=== PATIENT | female | born 1950 | race Caucasian/White ===

== ENCOUNTER 2017-01-29 20:08 | Emergency (ER) | payer MEDICARE, BC ==
[2017-01-29 20:34] VITALS: BP 138/62
[2017-01-29] MEDS ORDERED: DOXYcycline CAP(*) 100 MG PO ONE (20:43)
--- NOTE | 2017-01-29 20:51 | UC ---
General HPI - HPI Summary HPI Summary: WAS GARDENING TWO DAYS AGO; TODAY FOUND TICK ATTACHED TO RIGHT GROIN. TICK STILL PRESENT. NO FEVER. NO DISCHARGE. NO RASH. NO JOINT PAIN. - History of Current Complaint Chief Complaint: Pamela Stated Complaint: TICK RIGHT LEG Time Seen by Provider: 01/29/17 20:14 Hx Obtained From: Patient Onset/Duration: Sudden Onset, Lasting Days, Still Present Timing: Constant Onset Severity: Mild Current Severity: None Associated Signs & Symptoms: Negative: Chest Pain, Dizziness, Fever, Headache - Allergy/Home Medications Allergies/Adverse Reactions: Allergies Allergy/AdvReac Type Severity Reaction Status Date / Time Penicillins Allergy Intermediate rash, Verified 01/29/17 20:15 weakness PMH/Surg Hx/FS Hx/Imm Hx Previously Healthy: Yes - Surgical History Surgical History: Yes Surgery Procedure, Year, and Place: OVARIAN CYST IN THE 70S - Family History Known Family History: Negative: Blood Disorder - Social History Occupation: Employed Full-time Lives: With Family Alcohol Use: Rare Substance Use Type: None Smoking Status (MU): Never Smoked Tobacco - Immunization History Most Recent Influenza Vaccination: NONE Most Recent Tetanus Shot: UNKNOWN Most Recent Pneumonia Vaccination: NONE Review of Systems Constitutional: Negative Skin: Other - TICK EMBEDDED INRIGHT FEMORAL CREASE OF GROIN Eyes: Negative ENT: Negative Respiratory: Negative Cardiovascular: Negative Gastrointestinal: Negative Genitourinary: Negative Motor: Negative Neurovascular: Negative Musculoskeletal: Negative Neurological: Negative Psychological: Negative All Other Systems Reviewed And Are Negative: Yes Physical Exam Triage Information Reviewed: Yes Appearance: Well-Appearing, No Pain Distress, Well-Nourished Vital Signs: Initial Vital Signs Temp 98.1 F 01/29/17 20:16 Pulse 73 01/29/17 20:16 Resp 18 01/29/17 20:16 BP 138/62 01/29/17 20:16 Pulse Ox 96 01/29/17 20:16 Vital Signs Reviewed: Yes Eye Exam: Normal ENT Exam: Normal ENT: Positive: Normal ENT inspection Dental Exam: Normal Neck exam: Normal Neck: Positive: Supple, Nontender, No Lymphadenopathy Respiratory Exam: Normal Respiratory: Positive: Chest non-tender, Lungs clear, Normal breath sounds, No respiratory distress, No accessory muscle use Cardiovascular Exam: Normal Cardiovascular: Positive: RRR, No Murmur, Pulses Normal Abdominal Exam: Normal Abdomen Description: Positive: Nontender, No Organomegaly Musculoskeletal Exam: Normal Musculoskeletal: Positive: Strength Intact Neurological Exam: Normal Psychological Exam: Normal Skin: Positive: Other - TICK EMBEDDED IN RIGHT FEMORAL CREASE OF GROIN - Additional Comments TICK SUCCESSFULLY REMOVED USING TICK TWISTERS, PATINET TOLERATED PROCEDURE WELL Course/Dx - Differential Dx - Multi-Symptom Differential Diagnoses: Metabolic Abnormality, Sepsis, Other - TICK BITE Provider Diagnoses: RIGHT GROIN TICK BITE; TICK BITE PROPHYLAXIS Discharge - Discharge Plan Condition: Stable Disposition: HOME Patient Education Materials: Tick Bite (ED) Referrals: Sean Aviles DO [Primary Care Provider] - Images Front/Back of Body, Lg ([place]): 1 - TICK EMBEDDED HERE
== END 2017-01-29 20:55 | disposition home or self-care (01) ==
LOC: UCCORT 20:08
DX: S30.861A Insect bite (nonvenomous) of abdominal wall, initial encounter (principal); W57.XXXA Bitten or stung by nonvenomous insect and other nonvenomous arthropods, initial encounter; Y93.H2 Activity, gardening and landscaping; Y92.9 Unspecified place or not applicable; Z88.0 Allergy status to penicillin
CPT/HCPCS: 99202; A9270-GY; G0463

== ENCOUNTER 2017-01-30 12:12 | Emergency (ER) | payer MEDICARE, BC ==
[2017-01-30 13:15] VITALS: BP 144/79
--- NOTE | 2017-01-30 14:03 | UC ---
Skin Complaint HPI - HPI Summary HPI Summary: PATIENT PRESENTS TO WITH TICK TO THE RIGHT CANTHUS OF THE EAR. SHE WAS SEEN YESTERDAY FOR A TICK BITE IN THE GROIN AREA WITH UNKNOWN ATTACHMENT TIME. SHE DENIES JOINT ACHES, CONLEY, RASH OR OTHER SYMPTOMS. SHE WAS GIVEN DOXYCYCLINE 200MG LAST EVENING D/T UNKNOWN TIME OF ATTACHMENT. TODAY SHE NOTES THAT THIS TICK OVER THE EAR HAS BEEN PRESENT FOR LESS THAN 24 HOURS. SHE IS OTHERWISE HEALTHY. - History of Current Complaint Chief Complaint: Ear Time Seen by Provider: 01/30/17 13:47 Stated Complaint: TICK ON RIGHT EAR Hx Obtained From: Patient ?: No Onset/Duration: Sudden Onset Skin Exposure Onset/Duration: Hours Ago Timing: Constant Onset Severity: Mild Current Severity: Mild Pain Intensity: 1 Pain Scale Used: 0-10 Numeric Location: Ear (Right) Character: Pain, Redness Aggravating: Nothing Alleviating: Nothing Associated Signs & Symptoms: Positive: Negative Related History: Possible Reaction to: Insect - Allergy/Home Medications Allergies/Adverse Reactions: Allergies Allergy/AdvReac Type Severity Reaction Status Date / Time Penicillins Allergy Intermediate rash, Verified 01/30/17 13:15 weakness Home Medications: Home Medications DOXYcycline CAP(*) [DOXYcycline 100MG CAP(*)] 200 mg PO DAILY 01/30/17 [History Confirmed 01/30/17] Review of Systems Constitutional: Negative Skin: Other - SMALL ERYTHEMATOUS AREA OVER RIGHT EAR SURROUNDING SMALL BLACK AND RED TICK WITHOUT EM RASH Eyes: Negative ENT: Negative Cardiovascular: Negative Gastrointestinal: Negative Motor: Negative Neurovascular: Negative Neurological: Negative Psychological: Negative All Other Systems Reviewed And Are Negative: Yes PMH/Surg Hx/FS Hx/Imm Hx Previously Healthy: Yes - Surgical History Surgical History: Yes Surgery Procedure, Year, and Place: OVARIAN CYST IN THE 70S - Family History Known Family History: Positive: Unknown Negative: Blood Disorder - Social History Occupation: Unemployed Lives: With Family Alcohol Use: Rare Substance Use Type: None Smoking Status (MU): Never Smoked Tobacco - Immunization History Most Recent Influenza Vaccination: NONE Most Recent Tetanus Shot: UNKNOWN Most Recent Pneumonia Vaccination: NONE Physical Exam Triage Information Reviewed: Yes Appearance: Well-Appearing, No Pain Distress, Well-Nourished Vital Signs: Initial Vital Signs Temp 98.4 F 01/30/17 13:11 Pulse 64 01/30/17 13:11 Resp 16 01/30/17 13:11 BP 144/79 01/30/17 13:11 Pulse Ox 100 01/30/17 13:11 Vital Signs Reviewed: Yes Eye Exam: Normal ENT: Positive: Normal ENT inspection Dental Exam: Normal Neck exam: Normal Neck: Positive: Supple, Nontender, No Lymphadenopathy Respiratory: Positive: Chest non-tender, Lungs clear Cardiovascular Exam: Normal Cardiovascular: Positive: RRR Musculoskeletal: Positive: Strength Intact Neurological: Positive: Alert, Muscle Tone Normal Psychological Exam: Normal Psychological: Positive: Normal Response To Family Skin Exam: Normal Course/Dx - Course Course Of Treatment: SEEN HERE LAST EVENING FOR TICK BITE. RETURNS TODAY FOR ANOTHER TICK. SMALL ERYTHEMATOUS AREA OVER RIGHT EAR SURROUNDING SMALL BLACK AND RED TICK WITHOUT EM RASH. SHE DENIES OTHER SYMPTOMS. NOT GIVEN DOXYCYCLINE AT THIS VISIT FOR LESS THAN 36 HOURS OF ATTACHMENT. - Differential Diagnoses - Skin Complaint Differential Diagnoses: Head Lice, Tick Born Illness, Urticaria - Diagnoses Provider Diagnoses: TICK BITE Discharge - Discharge Plan Condition: Stable Disposition: HOME Referrals: Sean Aviles DO [Primary Care Provider] - Additional Instructions: FOLLOW UP NEEDED. NO NEED FOR PROPHYLAXIS AT THIS TIME. FOLLOW UP AT PCP OFFICE IF YOU DEVELOP A RED RINGED RASH OR JOINT ACHES OR CONLEY
== END 2017-01-30 14:02 | disposition home or self-care (01) ==
LOC: UCCORT 12:12
DX: S00.461A Insect bite (nonvenomous) of right ear, initial encounter (principal); W57.XXXA Bitten or stung by nonvenomous insect and other nonvenomous arthropods, initial encounter; Y93.9 Activity, unspecified; Y92.9 Unspecified place or not applicable; Z88.0 Allergy status to penicillin
CPT/HCPCS: 99211; G0463

== ENCOUNTER 2017-11-02 14:47 | Emergency (ER) | payer MEDICARE, BC ==
[2017-11-02 15:24] VITALS: BP 128/69
--- OUTSIDE RECORDS SUMMARY | 2017-11-02 15:27 | XMS REPORT ---
:1950 External Reference #:[id number] Author Organization [facility] Address [address] [address] Phone [phone] Care Team Providers Name Role Phone Joseline Lorenzo PA Care Team Information Marriage Therapist Unavailable Payers Type Date Identification Numbers Payment Provider Subscriber Medicare Primary Effective: Policy Number: Medicare Kathrin Almodovar 2013 [id number] PayID: [id number] [address] [place] [address] Medigap Part B Effective: Policy Number: [facility] Commercial Kathrin Almodovar 2013 [id number] PayID: [id number] [address] [address] [place] [address] Medigap Part B Effective: Policy Number: [facility] Commercial Kathrin Almodovar 2009 [id number] Expires: 2011 PayID: [id number] [address] [address] [place] [address] Workers Compensation Onset: 2015 Policy Number: [facility] Kathrin Almodovar [id number] PayID: [id number] [address] [place] [address] Problems Date Description Provider Status Onset: 08/27/2012 Disorder of bone Sean Romero DO Active Onset: 08/18/2005 Meniere's disease Sean Romero DO Active Family History Date Family Member(s) Problem(s) Comments Father CVA Father CAD Mother Hypertension First Sister due to Cancer, Brain () Social History Type Date Description Comments Marital Status Lives With Alone Occupation Retired ETOH Use Occasionally consumes alcohol Smoking Patient has never smoked General Hx Text Allergies, Adverse Reactions, Alerts Date Description Reaction Status Severity Comments 04/27/2007 Penicillin active 08/18/2005 Amoxicillin active Medications Medication Date Status Form Strength Qnty SIG Indications Ordering Provider Acetaminophen 09/01/ Active Tablets 325mg 100tab 2 by Alannah Ravi s mouth Suleman, four DO times a day as needed Vitamin D-3 08/30/ Active Capsules 1000Unit 1 by Traci 2015 mouth Sean, every DO day Vitamin B 08/31/ Active Tablets OTC 1 by Brice Romero 2014 mouth Sean, every DO day Multi-Day 04/10/ Active Tablets 1 po qd Traci, Vitamins 2008 Sean, Fluticasone / Active Suspension 50mcg/Act 2 sprays Unknown Propionate 0000 each nare every day as needed Docusate Sodium 09/01/ Hx Capsules 100mg 60caps 1 by Alannah Ravi - mouth Suleman, 09/15/ twice a DO 2018 day Polyethylene 09/01/ Hx Powder [id number] mix 1 Trav Glycol 3350 2016 - ts capful Suleman, 09/15/ (17gm) DO 2017 in 8 oz fluid & drink daily Vesicare 09/01/ Hx Tablets 5mg 30tabs 1 tablet R32 Trav 2016 - by mouth Suleman, 10/11/ once DO 2017 daily Vesicare 08/10/ Hx Tablets 10mg 30tabs 1 PO Q R32 Traci 2016 - hs Sean, DO 2016 Doxycycline 07/17/ Hx Tablets 100mg 20tabs 1 by [id number] Austen Romero 2016 - mouth Sean, 07/27/ twice a DO 2016 day Vesicare 07/17/ Hx Tablets 5mg 90tabs 1 PO Q D R32 Traci 2016 - Sean, DO 2016 Benzonatate 10/27/ Hx Capsules 200mg 30caps 1 by J06.9 Traci 2016 - mouth Sean, 03/21/ three DO 2016 times a day Alendronate 08/30/ Hx Tablets 70mg 4tabs take 1 M81.0 Traci, Sodium 2015 - tablet Sean, 07/17/ by mouth DO 2016 every week Doxycycline 03/10/ Hx Capsules 100mg 2caps 2 po x 1 [id number] Austen Ravi 2015 - now Suleman, 2015 Meloxicam 01/10/ Hx Tablets 15mg 1 by Karolyn, 2016 - mouth Wil 08/30/ 2015 day Vitamin D 07/16/ Hx Capsules 400Unit 100cap 1 po bid Traci, 2013 - s Sean, 2015 Calcium 04/10/ Hx Tablets 600-200mg- 2 po qd Traci, Carbonate-Vitam 2008 - Unit Sean, in D 2016 Immunizations CPT Code Status Date Vaccine Lot # [id number] Given 12/27/2010 Tdap (Adacel) Ages 7 And Above Only [id number] Refused 08/31/2015 Prevnar 13 Pneumococal Conjugate Vaccine Vital Signs Date Vital Result Comment 10/11/2017 Weight 165.00 lb Heart Rate 80 /min BP Systolic 122 mmHg BP Diastolic 70 mmHg Respiratory Rate 18 /min Height 63.25 inches 5'3.25" 10/11/17 BMI (Body Mass Index) 29.0 kg/m2 09/15/2017 Weight 163.00 lb Heart Rate 76 /min BP Systolic 132 mmHg BP Diastolic 76 mmHg Respiratory Rate 18 /min Height 63.25 inches 5'3.25" BMI (Body Mass Index) 28.6 kg/m2 09/01/2017 Weight 165.00 lb Heart Rate 60 /min BP Systolic 114 mmHg BP Diastolic 78 mmHg Respiratory Rate 14 /min Height 63.25 inches 5'3.25" BMI (Body Mass Index) 29.0 kg/m2 08/25/2017 Body Temperature 98.9 F Weight 160.00 lb Heart Rate 74 /min BP Systolic 128 mmHg BP Diastolic 80 mmHg Respiratory Rate 18 /min Height 63.25 inches 5'3.25" O2 % BldC Oximetry 96 % BMI (Body Mass Index) 28.1 kg/m2 08/10/2017 Body Temperature 98.8 F Weight 165.00 lb Heart Rate 88 /min BP Systolic 136 mmHg BP Diastolic 80 mmHg Respiratory Rate 16 /min 08/10/2017 Weight 136.00 lb 07/17/2017 Body Temperature 98.7 F tympanic Weight 165.56 lb Heart Rate 76 /min BP Systolic 134 mmHg BP Diastolic 74 mmHg Respiratory Rate 18 /min Height 63.5 inches 5'3.50" BMI (Body Mass Index) 28.9 kg/m2 06/27/2017 Body Temperature 98.7 F tympanic Weight 162.00 lb Heart Rate 80 /min BP Systolic 128 mmHg BP Diastolic 84 mmHg Respiratory Rate 18 /min Height 63.5 inches 5'3.50" BMI (Body Mass Index) 28.2 kg/m2 03/21/2017 Weight 160.00 lb Heart Rate 80 /min BP Systolic 136 mmHg BP Diastolic 80 mmHg Respiratory Rate 18 /min Height 63.5 inches 5'3.50" BMI (Body Mass Index) 27.9 kg/m2 10/27/2016 Body Temperature 98.4 F Weight 161.44 lb With Shoes Heart Rate 78 /min BP Systolic 120 mmHg BP Diastolic 80 mmHg BP Systolic Recheck 120 mmHg BP Diastolic Recheck 72 mmHg Respiratory Rate 24 /min O2 % BldC Oximetry 96 % Ra 08/30/2016 Weight 155.50 lb Heart Rate 80 /min BP Systolic 130 mmHg BP Diastolic 64 mmHg BP Systolic Recheck 130 mmHg BP Diastolic Recheck 70 mmHg Respiratory Rate 14 /min Height 63.25 inches 5'3.25" 08/30/16 BMI (Body Mass Index) 27.3 kg/m2 03/10/2016 Body Temperature 97.7 F Weight 154.00 lb Heart Rate 72 /min BP Systolic 120 mmHg BP Diastolic 70 mmHg Respiratory Rate 18 /min Height 63.5 inches 5'3.50" BMI (Body Mass Index) 26.8 kg/m2 02/09/2016 Body Temperature 98.7 F Weight 161.00 lb Heart Rate 80 /min BP Systolic 122 mmHg BP Diastolic 74 mmHg Respiratory Rate 18 /min Height 63.5 inches 5'3.50" BMI (Body Mass Index) 28.1 kg/m2 08/31/2015 Weight 164.06 lb Heart Rate 78 /min 80 Reg BP Systolic 128 mmHg BP Diastolic 70 mmHg BP Systolic Recheck 122 mmHg BP Diastolic Recheck 74 mmHg Respiratory Rate 18 /min Height 63.5 inches 5'3.50" BMI (Body Mass Index) 28.6 kg/m2 07/24/2015 Weight 164.00 lb Heart Rate 76 /min BP Systolic 112 mmHg L/Reg BP Diastolic 72 mmHg L/Reg Respiratory Rate 16 /min Height 63.5 inches 5'3.50" BMI (Body Mass Index) 28.6 kg/m2 02/24/2015 Weight 160.00 lb BP Systolic 112 mmHg BP Diastolic 78 mmHg 01/27/2015 Weight 160.00 lb BP Systolic 122 mmHg BP Diastolic 70 mmHg BP Systolic Recheck 128 mmHg BP Diastolic Recheck 72 mmHg Height 63.5 inches 5'3.50" BMI (Body Mass Index) 27.9 kg/m2 08/29/2014 BP Systolic 120 mmHg BP Diastolic 74 mmHg 08/29/2014 Weight 156.00 lb Heart Rate 72 /min 72 Reg BP Systolic 120 mmHg BP Diastolic 70 mmHg Respiratory Rate 18 /min Height 63.5 inches 5'3.50" 04/01/2014 Weight 158.00 lb Heart Rate 72 /min BP Systolic 122 mmHg BP Diastolic 78 mmHg Respiratory Rate 18 /min 08/27/2013 BP Systolic 110 mmHg BP Diastolic 70 mmHg 08/27/2013 Weight 155.00 lb Heart Rate 78 /min 72 Reg BP Systolic 108 mmHg BP Diastolic 70 mmHg Respiratory Rate 18 /min Height 63.5 inches 5'3.50" 08/19/2013 Body Temperature 98.0 F Weight 155.00 lb Heart Rate 81 /min BP Systolic 126 mmHg BP Diastolic 82 mmHg Respiratory Rate 18 /min 07/16/2013 Weight 160.00 lb BP Systolic 122 mmHg BP Diastolic 70 mmHg 02/25/2013 BP Systolic 110 mmHg BP Diastolic 70 mmHg 02/25/2013 Weight 158.00 lb Heart Rate 72 /min 72 Reg BP Systolic 112 mmHg BP Diastolic 74 mmHg Respiratory Rate 18 /min 08/27/2012 BP Systolic 118 mmHg BP Diastolic 70 mmHg 08/27/2012 Weight 162.00 lb Heart Rate 78 /min 72 Reg BP Systolic 112 mmHg BP Diastolic 62 mmHg Respiratory Rate 18 /min 06/27/2011 Body Temperature 98.1 F Weight 158.31 lb Heart Rate 86 /min BP Systolic 100 mmHg BP Diastolic 70 mmHg Respiratory Rate 18 /min Height 64.5 inches 5'4.50"06/14/2011 Weight 160.31 lb Heart Rate 66 /min BP Systolic 130 mmHg BP Diastolic 80 mmHg Respiratory Rate 18 /min Height 64.5 inches 5'4.50"12/27/2010 Body Temperature 98.0 F Weight 161.00 lb Heart Rate 84 /min BP Systolic 124 mmHg BP Diastolic 70 mmHg Height 64.5 inches 5'4.50" 04/13/2010 Weight 159.00 lb Heart Rate 72 /min BP Systolic 118 mmHg BP Diastolic 70 mmHg Respiratory Rate 18 /min Height 64 inches 5'4" 04/10/2009 Weight 155.00 lb Heart Rate 72 /min BP Systolic 112 mmHg BP Diastolic 74 mmHg Respiratory Rate 18 /min 11/23/2007 Weight 152.00 lb Heart Rate 72 /min BP Systolic 136 mmHg BP Diastolic 78 mmHg Respiratory Rate 18 /min Height 64 inches 5'4" 11/14/2007 Weight 154.00 lb Heart Rate 83 /min BP Systolic 120 mmHg BP Diastolic 78 mmHg Respiratory Rate 19 /min Height 64 inches 5'4" 04/27/2007 Weight 153.00 lb Heart Rate 72 /min BP Systolic 124 mmHg BP Diastolic 72 mmHg Respiratory Rate 18 /min Height 64 inches 5'4" 03/30/2007 Weight 149.00 lb Heart Rate 72 /min BP Systolic 134 mmHg BP Diastolic 80 mmHg Respiratory Rate 18 /min Height 64 inches 5'4" 05/22/2006 Body Temperature 101.3 F Weight 151.00 lb Heart Rate 77 /min BP Systolic 100 mmHg BP Diastolic 62 mmHg Respiratory Rate 18 /min Height 64 inches 5'4" 08/18/2005 Weight 145.00 lb BP Systolic 124 mmHg RIGHT BP Diastolic 80 mmHg RIGHT Height 64 inches 5'4" Results Test Date Test Result H/L Range Note Comprehensive Met Panel-FCMG 09/15/2017 Sodium 141 mmol/L 135-146 1 Potassium 3.9 mmol/L 3.5-5.2 Chloride# 102 mmol/L 97-110 2 Carbon Dioxide 30 mmol/L 24-34 Glucose 103 mg/dL 70-105 Creatinine 0.7 mg/dL 0.5-1.4 Calcium 9.8 mg/dL 8.5-10.2 Total Protein 6.8 g/dL 6.0-8.0 Albumin 4.3 g/dL 3.6-4.9 Globulin 2.5 g/dL 2.0-3.5 A/G Ratio 1.7 Ratio 1.0-2.2 Total Bilirubin 0.5 mg/dL 0.1-1.3 Alkaline Phosphatase 61 U/L 24-140 Alt 20 U/L 3-42 Ast 20 U/L 8-42 Rosalinda Egfr >60 >60 3 Non Rosalinda Egfr >60 >60 4 Anion Gap 9 mmol/L 7-16 5 BUN 14 mg/dL 6-26 Laboratory test 09/15/2017 Hepatitis C Virus NON REACTIVE Non Reactive 6 finding Antibody S/[facility] Vitamin D 25 Hydroxy 42 ng/mL 30-100 7 Vitamin B12 978 pg/mL High 180-914 Comprehensive Metabolic Panel 09/08/2017 Glucose 91 mg/dL 74-106 8 BUN 12 mg/dL 7-18 8 Creatinine 0.7 mg/dL 0.6-1.3 8 Glom Filtration Rate, Estimate >60 mL/min >60 8 If >60 mL/min >60 8, 9 BUN/Creat 17.1 ratio 8 Sodium 141 mmol/L 136-145 8 Potassium 4.2 mmol/L 3.5-5.1 8 Chloride 104 mmol/L 98-107 8 Carbon Dioxide 30 mmol/L 21-32 8 Anion Gap 7 mEq/L Low 8-16 8 Calcium 9.3 mg/dL 8.5-10.1 8 Total Protein 7.1 g/dL 6.4-8.2 8 Albumin 3.5 g/dL 3.4-5.0 8 Globulin 3.6 g/dL 1.9-4.3 8 Alb/Glob 1.0 ratio 8 Bilirubin,Total 0.4 mg/dL 0.2-1.0 8 Sgot/Ast 20 U/L 15-37 8 SGPT/Alt 32 U/L 12-78 8 Alkaline Phosphatase 70 U/L 45-117 8 CBC With Diff 09/01/2017 WBC 7.2 10*3/uL (4.1-11.0) RBC 4.59 10*6/uL (4.00-5.40) HGB 14.2 g/dL (12.0-16.0) HCT 42.3 % (36.0-47.0) MCV 92.3 fL (80.0-95.0) MCH 31.0 pg (27.0-32.0) MCHC 33.6 g/dL (32.0-36.0) RDW 12.8 % (10.5-14.5) PLT 355 10*3/uL (150-450) MPV 7.3 fL (7.1-10.7) Neut % 65.8 % (35.0-75.0) Lymph % 24.8 % (16.0-52.0) Vilas % 8.3 % High (0.0-8.0) Eos % 0.7 % (0.0-5.0) Baso % 0.4 % (0.0-4.0) Neut # 4.7 10*3/uL (1.8-7.7) Lymph # 1.8 10*3/uL (1.2-4.8) Vilas # 0.6 10*3/uL (0.0-0.8) Eos # 0.0 10*3/uL (0.0-0.5) Baso # 0.0 10*3/uL (0.0-0.2) CMP 09/01/2017 Sodium 130 mmol/L Low (136-145) Potassium 4.2 mmol/L (3.6-5.2) Chloride 94 mmol/L Low (100-108) Co2 27 mmol/L (22-31) Anion Gap 9 mmol/L (7-16) Urea Nitrogen 14 mg/dL (7-24) Creatinine 0.65 mg/dL (0.60-1.00) BUN/Creat Ratio 21.5 RATIO High (10.0-20.0) Glucose 108 mg/dL High (70-99) Calcium 9.2 mg/dL (8.4-10.2) Total Protein 6.9 g/dL (6.4-8.2) Albumin 3.5 g/dL (3.2-4.5) Globulin 3.4 g/dL (2.7-4.3) Alb/Glob Ratio 1.0 RATIO Alkaline Phosphatase 64 U/L (45-117) Bilirubin,Total 0.5 mg/dL (0.0-1.0) Ast (Sgot) 20 U/L (11-39) Alt (SGPT) 29 U/L (12-78) GFR >60 ml/min/1.73m2 (>59) GFR ( Amer) >60 ml/min/1.73m2 (>59) GFR Interpretation <SEE NOTE> 10 CBC With Auto Diff 08/25/2017 WBC 5.9 K/uL 4.1-11.0 11 RBC 4.58 M/uL 4.00-5.40 11 Hemoglobin 14.3 gm/dL 12.0-16.0 11 Hematocrit 42.7 % 36.0-47.0 11 MCV 93.4 fL 80.0-97.0 11 MCH 31.3 pg 27.0-32.0 11 MCHC 33.5 g/dL 32.0-36.0 11 RDW 12.9 % 11.5-14.5 11 PLT Count 361 K/ul 140-400 11 MPV 7.7 FL 7.1-10.7 11 Neutrophil 61.5 % 35.0-75.0 11 Lymphocyte 27.6 % 16.0-52.0 11 Monocyte 9.0 % 2.0-10.0 11 Eosinophil 0.9 % 0.0-5.0 11 Basophil 1.0 % 0.0-4.0 11 Abs Neutrophils 3.6 K/uL 2.1-8.0 11 Abs Lymphocytes 1.6 K/uL 0.8-5.5 11 Abs Monocytes 0.5 K/uL 0.1-1.0 11 Abs Eosinophils 0.1 K/uL 0.0-0.5 11 Abs Basophils 0.1 K/uL 0.0-0.3 11 Comprehensive Met Panel-FCM 08/25/2017 Sodium 136 mmol/L 135-146 11, 12 Potassium 4.4 mmol/L 3.5-5.2 11 Chloride# 98 mmol/L 97-110 11, 13 Carbon Dioxide 30 mmol/L 24-34 11 Glucose 85 mg/dL 70-105 11 Creatinine 0.7 mg/dL 0.5-1.4 11 Calcium 9.8 mg/dL 8.5-10.2 11 Total Protein 6.9 g/dL 6.0-8.0 11 Albumin 4.6 g/dL 3.6-4.9 11 Globulin 2.3 g/dL 2.0-3.5 11 A/G Ratio 2.0 Ratio 1.0-2.2 11 Total Bilirubin 0.4 mg/dL 0.1-1.3 11 Alkaline Phosphatase 63 U/L 24-140 11 Alt 19 U/L 3-42 11 Ast 22 U/L 8-42 11 Rosalinda Egfr >60 >60 11, 14 Non Rosalinda Egfr >60 >60 11, 15 Anion Gap 8 mmol/L 7-16 11, 16 BUN 13 mg/dL 6-26 11 Laboratory test finding 08/25/2017 Phosphorus 3.7 mg/dL 2.5-5.0 11 Uric Acid 3.4 mg/dL 2.6-7.6 11 Lipid 08/25/2017 Cholesterol 213 mg/dL High 50-199 11 Triglycerides 64 mg/dL 30-200 11 HDL 79 mg/dL 35-85 11, 17 Chol/ HDL Ratio 2.7 ratio Low 3.7-5.6 11 VLDL 13 mg/dL 2-29 11 LDL (Calc) 122 mg/dL High 20-99 11, 18 Laboratory test finding 08/25/2017 Gamma gt 34 U/L (15-95) 11, 19 LDH 200 U/L (84-246) 11, 20 Basic (BMP) 08/10/2017 Sodium 140 mmol/L 135-146 21 Potassium 4.1 mmol/L 3.5-5.2 Chloride# 103 mmol/L 97-110 22 Carbon Dioxide 29 mmol/L 24-34 Glucose 145 mg/dL High 70-105 Creatinine 0.7 mg/dL 0.5-1.4 Calcium 9.4 mg/dL 8.5-10.2 Non Rosalinda Egfr >60 >60 23 Rosalinda Egfr >60 >60 24 Anion Gap 8 mmol/L 7-16 25 BUN 13 mg/dL 6-26 Laboratory test 06/27/2017 Urine Culture Microbiology res 26 finding <SEE NOTE> Laboratory test 03/22/2017 TSH 1.10 uIU/mL 0.35-4.94 27 finding Vitamin B12 889 pg/mL 180-914 27 CBC With Auto Diff 03/22/2017 WBC 4.4 K/uL 4.1-11.0 27 RBC 4.56 M/uL 4.00-5.40 27 Hemoglobin 14.1 gm/dL 12.0-16.0 27 Hematocrit 42.1 % 36.0-47.0 27 MCV 92.2 fL 80.0-97.0 27 MCH 30.9 pg 27.0-32.0 27 MCHC 33.5 g/dL 32.0-36.0 27 RDW 13.1 % 11.5-14.5 27 PLT Count 283 K/ul 140-400 27 Neutrophil 45.0 % 35.0-75.0 27 Lymphocyte 38.1 % 16.0-52.0 27 Monocyte 14.4 % High 2.0-10.0 27 Eosinophil 1.7 % 0.0-5.0 27 Basophil 0.8 % 0.0-4.0 27 Abs Neutrophils 2.0 K/uL Low 2.1-8.0 27 Abs Lymphocytes 1.7 K/uL 0.8-5.5 27 Abs Monocytes 0.6 K/uL 0.1-1.0 27 Abs Eosinophils 0.1 K/uL 0.0-0.5 27 Abs Basophils 0.0 K/uL 0.0-0.3 27 Comprehensive Met Panel-FCMG 03/22/2017 Sodium 137 mmol/L 135-146 27, 28 Potassium 4.2 mmol/L 3.5-5.2 27 Chloride# 102 mmol/L 97-110 27, 29 Carbon Dioxide 26 mmol/L 24-34 27 Glucose 98 mg/dL 70-105 27 BUN 15 mg/dL 6-26 27 Creatinine 0.7 mg/dL 0.5-1.4 27 Calcium 9.3 mg/dL 8.5-10.2 27 Total Protein 6.7 g/dL 6.0-8.0 27 Albumin 4.3 g/dL 3.6-4.9 27 Globulin 2.4 g/dL 2.0-3.5 27 A/G Ratio 1.8 Ratio 1.0-2.2 27 Total Bilirubin 0.4 mg/dL 0.1-1.3 27 Alkaline Phosphatase 47 U/L 24-140 27 Alt 14 U/L 3-42 27 Ast 22 U/L 8-42 27 Rosalinda Egfr >60 >60 27, 30 Non Rosalinda Egfr >60 >60 27, 31 Anion Gap 13 mmol/L 7-16 27, 32 Lyme Disease By PCR - RL 03/22/2017 Source SERUM 27 Lyme PCR Not Detected 27, 33 Lipid 08/31/2016 Cholesterol 251 mg/dL High 50-199 Triglycerides 56 mg/dL 30-150 HDL 89 mg/dL High 45-85 34 Chol/ HDL Ratio 2.8 ratio Low 3.7-5.6 VLDL 11 mg/dL 2-29 LDL (Calc) 151 mg/dL High 20-129 35 Laboratory test finding 08/31/2016 Vit D,25 Hydroxy 60 ng/mL 31-100 Comprehensive Metabolic (CMP) 08/31/2016 Sodium 138 mmol/L 134-142 Potassium 4.6 mmol/L 3.5-5.2 Chloride 104 mmol/L 97-109 Carbon Dioxide 28 mmol/L 24-34 Glucose 95 mg/dL 70-105 BUN 18 mg/dL 6-26 Creatinine 0.7 mg/dL 0.5-1.4 Calcium 9.1 mg/dL 8.5-10.2 Total Protein 6.5 g/dL 6.0-8.0 Albumin 4.2 g/dL 3.6-4.9 Globulin 2.3 g/dL 2.0-3.5 A/G Ratio 1.8 Ratio 1.0-2.2 Total Bilirubin 0.5 mg/dL 0.1-1.3 Alkaline Phosphatase 52 U/L 24-140 Alt 15 U/L 3-42 Ast 21 U/L 8-42 Anion Gap 11 mmol/L 6-14 Rosalinda Egfr >60 >60 36 Non Rosalinda Egfr >60 >60 37 CBC With Auto Diff 08/31/2016 WBC 4.6 K/uL 4.1-11.0 RBC 4.49 M/uL 4.00-5.40 Hemoglobin 13.7 gm/dL 12.0-16.0 Hematocrit 41.6 % 36.0-47.0 MCV 92.5 fL 80.0-97.0 MCH 30.6 pg 27.0-32.0 MCHC 33.1 g/dL 32.0-36.0 RDW 13.0 % 11.5-14.5 PLT Count 301 K/ul 140-400 Neutrophil 52.9 % 35.0-75.0 Lymphocyte 35.3 % 16.0-52.0 Monocyte 9.7 % 2.0-10.0 Eosinophil 1.2 % 0.0-5.0 Basophil 0.9 % 0.0-4.0 Abs Neutrophils 2.4 K/uL 2.1-8.0 Abs Lymphocytes 1.6 K/uL 0.8-5.5 Abs Monocytes 0.4 K/uL 0.1-1.0 Abs Eosinophils 0.1 K/uL 0.0-0.5 Abs Basophils 0.0 K/uL 0.0-0.3 CBC With Auto Diff 09/21/2015 WBC 4.6 K/uL 4.1-11.0 RBC 4.60 M/uL 4.00-5.40 Hemoglobin 14.1 gm/dL 12.0-16.0 Hematocrit 42.8 % 36.0-47.0 MCV 93.1 fL 80.0-97.0 MCH 30.8 pg 27.0-32.0 MCHC 33.0 g/dL 32.0-36.0 RDW 13.4 % 11.5-14.5 PLT Count 319 K/ul 140-400 Neutrophil 55.9 % 35.0-75.0 Lymphocyte 33.0 % 16.0-52.0 Monocyte 8.5 % 2.0-10.0 Eosinophil 1.8 % 0.0-5.0 Basophil 0.8 % 0.0-4.0 Abs Neutrophils 2.6 K/uL 2.1-8.0 Abs Lymphocytes 1.5 K/uL 0.8-5.5 Abmon 0.4 K/uL 0.1-1.0 Abs Eosinophils 0.1 K/uL 0.0-0.5 Abs Basophils 0.0 K/uL 0.0-0.3 Comprehensive Metabolic (CMP) 09/21/2015 Sodium 137 mmol/L 134-142 Potassium 4.5 mmol/L 3.5-5.2 Chloride 102 mmol/L 97-109 Carbon Dioxide 27 mmol/L 24-34 Glucose 88 mg/dL 70-105 BUN 14 mg/dL 6-26 Creatinine 0.7 mg/dL 0.5-1.4 Calcium 9.5 mg/dL 8.5-10.2 Total Protein 6.7 g/dL 6.0-8.0 Albumin 4.2 g/dL 3.6-4.9 Globulin 2.5 g/dL 2.0-3.5 A/G Ratio 1.7 Ratio 1.0-2.2 Total Bilirubin 0.5 mg/dL 0.1-1.3 Alkaline Phosphatase 53 U/L 24-140 Alt 13 U/L 3-42 Ast 20 U/L 8-42 Anion Gap 13 mmol/L 6-14 Rosalinda Egfr >60 >60 38 Non Rosalinda Egfr >60 >60 39 Laboratory test finding 09/21/2015 Esr 5 mm/hr 0-20 TSH 1.08 uIU/mL 0.35-4.94 Free T4 1.02 ng/dL 0.70-1.48 Vitamin B12 >1500 pg/mL High 180-914 Minerva Screen Neg Neg Lipid 09/21/2015 Cholesterol 244 mg/dL High 50-199 Triglycerides 95 mg/dL 30-150 HDL 76 mg/dL 45-85 40 Chol/ HDL Ratio 3.2 ratio Low 3.7-5.6 VLDL 19 mg/dL 2-29 LDL (Calc) 149 mg/dL High 20-129 41 Laboratory test finding 07/24/2015 H Pylori AB Igg <0.40 U/mL (< 0.90) 42 Laboratory test finding 02/05/2015 Polyp Colon And/Or See Note 43 Rectum Laboratory test finding 08/29/2014 % Baso. 1.3 % 0.0-2.0 % Eos. 1.2 % 0.0-4.0 % Lymph 32 % 20-44 % Vilas 10.5 % High 2.0-10.0 % Rina 56 % 50-70 A/G Ratio 1.8 ratio 1.6-2.2 Absolute Baso. 0.1 K/ul 0.0-0.3 Absolute Eos. 0.1 K/ul 0.0-0.5 Absolute Lymph. 1.8 K/ul 0.8-4.8 Absolute Vilas. 0.6 K/ul 0.1-1.0 Absolute Rina. 3.24 K/ul 2.05-7.63 Albumin 4.5 g/dL 3.5-5.0 Alk. Phos. 83.0 U/L 30.0-126.0 Alt 14.0 U/L 9.0-52.0 Anion Gap 8.0 mmol/L Low 10.0-20.0 Ast 22.0 U/L 14.0-36.0 BUN 12.0 mg/dL 7.0-18.0 BUN/Creat Ratio 17.1 ratio 12.0-20.0 Calcium 10.3 mg/dL 8.7-10.5 Chloride 103.0 mmol/L 98.0-107.0 Co2 27.0 mmol/L 22.0-30.0 Creatinine-Serum 0.7 mg/dL 0.7-1.2 Globulin 2.5 g/dL Low 2.7-4.3 Glucose 89.0 mg/dL 75.0-110.0 HCT 44.0 % 37.0-51.0 HGB 14.7 Gm/dl 12.0-16.0 MCH 31.1 pg 26.0-32.0 MCHC 33.5 g/dL 31.0-36.0 MCV 93.0 Fl 80.0-97.0 MPV 6.4 fL 6.0-10.0 PLT 362 K/ul 140-440 Potasium 4.3 mmol/L 3.6-5.0 RBC 4.7 M/ul 4.2-6.3 RDW 11.9 % 11.5-14.5 Sodium 138.0 mmil/L 137.0-145.0 Total Bilirubin 0.5 mg/dL 0.2-1.3 Total Protein 7.0 g/dL 6.3-8.2 Vitamin D,25-Hydroxy 34.4 ng/mL 30.0-100.0 44 WBC 5.8 K/ul 4.1-10.9 eGFR 93.6 mi/minper1.73 45 Lipid Panel 08/29/2014 Chol/HDL Ratio 2.9 ratio Cholesterol 237.0 mg/dL High 50.0-199.0 HDL 81.0 mg/dL 45.0-86.0 LDL, Calculated 141.0 mg/dL High 20.0-129.0 Triglycerides 75.0 mg/dL 30.0-150.0 vLDL 15.0 ng/dL Laboratory test finding 03/28/2014 Lyme AB Igg By Western Blot . Lyme AB Igm Interpretation Equivocal . Lyme AB/Total Immunoglobulins 1.77 index High 0.00-0.90 46 Lyme Ab Interpretation,Eia Positive High . Lyme Disease Antibody,QT,Igm 1.03 index High 0.00-0.90 47 Lyme IgG + IgM By Western Blot See Note 48 Lyme Igg WB Interpretation Negative . 49 Lyme Igm WB Interpretation Negative . 50 P18 AB Absent . P23 AB Absent . P28 AB Absent . P30 AB Absent . P39 AB Absent . P41 AB Absent . P45 AB Absent . P58 AB Absent . P66 AB Absent . P93 AB Absent . Laboratory test finding 08/27/2013 Cytology Pap See Note 51 Laboratory test finding 08/27/2013 % A1c 6.0 % 4.1-6.5 % Baso. 1.1 % 0.0-2.0 % Eos. 0.9 % 0.0-4.0 % Lymph 25 % 20-44 % Vilas 8.8 % 2.0-10.0 % Rina 64 % 50-70 A/G Ratio 1.5 ratio 1.5-2.2 Absolute Baso. 0.1 K/ul 0.0-0.3 Absolute Eos. 0.1 K/ul 0.0-0.5 Absolute Lymph. 1.9 K/ul 0.8-4.8 Absolute Vilas. 0.7 K/ul 0.1-1.0 Absolute Rina. 4.91 K/ul 2.05-7.63 Albumin 4.3 g/dL 3.5-5.0 Alk. Phos. 77.0 U/L 30.0-126.0 Alt 15.0 U/L 9.0-52.0 Anion Gap 11.0 mmol/L 10.0-20.0 Ast 19.0 U/L 14.0-36.0 BUN 11.0 mg/dL 7.0-18.0 BUN/Creat Ratio 13.8 ratio 12.0-20.0 Calcium 10.3 mg/dL 8.7-10.5 Chloride 99.0 mmol/L 98.0-107.0 Co2 29.0 mmol/L 22.0-30.0 Creatinine-Serum 0.8 mg/dL 0.7-1.2 Globulin 2.8 g/dL 2.7-4.3 Glucose 87.0 mg/dL 75.0-110.0 HCT 45.5 % 37.0-51.0 HGB 14.8 Gm/dl 12.0-16.0 MCH 30.5 pg 26.0-32.0 MCHC 32.5 g/dL 31.0-36.0 MCV 93.7 Fl 80.0-97.0 MPV 5.7 fL Low 6.0-10.0 PLT 424 K/ul 140-440 Potasium 4.4 mmol/L 3.6-5.0 RBC 4.9 M/ul 4.2-6.3 RDW 11.8 % 11.5-14.5 Sodium 139.0 mmil/L 137.0-145.0 Total Bilirubin 0.6 mg/dL 0.2-1.3 Total Protein 7.1 g/dL 6.3-8.2 Vitamin D 53.3 ng/mL 30.0-100.0 WBC 7.7 K/ul 4.1-10.9 eGFR 82.1 mi/minper1.73 52 Lipid Panel 08/27/2013 Chol/HDL Ratio 3.5 ratio Cholesterol 233.0 mg/dL High 50.0-199.0 HDL 66.0 mg/dL 45.0-86.0 LDL, Calculated 140.4 mg/dL High 20.0-129.0 Triglycerides 133.0 mg/dL 30.0-150.0 vLDL 26.6 ng/dL Laboratory test finding 08/27/2013 Culture Urine See Note 53 Cytology See Note 54 Laboratory test finding 07/16/2013 Esr Sedrate 31.0 sec High 0.0-25.0 Lyme AB Igg By Western Blot . Lyme AB Igm By Western Blot . Lyme AB Igm Interpretation Positive High . Lyme AB/Total Immunoglobulins 1.91 index High 0.00-0.90 55 Lyme Ab Interpretation,Eia Positive High . Lyme Disease Antibody,QT,Igm 1.11 index High 0.00-0.90 56 Lyme IgG + IgM By Western Blot See Note 57 Lyme Igg WB Interpretation Negative . 58 Lyme Igm WB Interpretation Negative . 59 P18 AB Absent . P23 AB Absent . P28 AB Absent . P30 AB Absent . P39 AB Absent . P41 AB Absent . P45 AB Absent . P58 AB Absent . P66 AB Absent . P93 AB Absent . Rheumatoid Factor Screen Negative Negative Antinuclear Antibodies, Ifa 07/16/2013 Antinuclear Antibodies, See patterns . 60 Ifa Homogeneous Pattern 1:320 High . Note See Note 61 Laboratory test finding 02/18/2013 % A1c 5.7 % 4.1-6.5 BUN 15.0 mg/dL 7.0-18.0 BUN/Creat Ratio 18.8 ratio 12.0-20.0 Calcium 9.8 mg/dL 8.7-10.5 Chloride 105.0 mmol/L 98.0-107.0 Co2 23.0 mmol/L 22.0-30.0 Creatinine-Serum 0.8 mg/dL 0.7-1.2 Glucose 99.0 mg/dL 75.0-110.0 Potasium 4.4 mmol/L 3.6-5.0 Sodium 140.0 mmil/L 137.0-145.0 eGFR 76.8 Laboratory test finding 07/31/2012 Anion Gap 13 mEq/L 8-16 BUN 16 mg/dL 5-23 BUN/Creat 22.8 ratio Bas% 0.3 % 0.0-1.1 Baso # 0.02 K/uL 0.0-0.1 Calcium 8.9 mg/dL 8.5-10.1 Carbon Dioxide 26 mEq/L 18-29 Chloride 104 mmol/L 98-107 Creatinine 0.7 mg/dL 0.5-1.4 Eo% 0.4 % 0.0-6.6 Eos # 0.03 K/uL 0.0-0.5 Glom Filtration Rate, Estimate >60 mL/min >60 Glucose 97 mg/dL 76-115 Glycohemoglobin (A1c) 6.1 % High 4.8-6.0 62 Hematocrit 39.2 % 36.0-46.1 Hemoglobin 13.3 gm/dL 11.6-15.8 If >60 mL/min >60 63 Lymph # 2.31 K/uL 0.8-3.4 Lymph % 32.3 % 17.0-46.1 Mean Cell Volume 88.9 fl 80.9-99.0 Mean Corpuscular HGB 30.2 pg 25.9-32.7 Mean Corpuscular HGB Conc 33.9 g/dL 30.8-34.3 Mean Platelet Volume 10.1 fL 8.9-12.4 Vilas # 0.91 K/uL High 0.3-0.9 Vilas % 12.7 % 4.3-13.2 Neut# 3.88 K/uL 1.0-7.0 Neut% 54.3 % 40.4-72.8 Platelet Count 306 K/uL 155-360 Potassium 3.8 mmol/L 3.5-5.1 Red Blood Count 4.41 M/uL 3.90-5.40 Red Cell Distri Width %CV 13.7 % 11.7-14.4 Red Cell Distri Width SD 43.5 fl 3-47 Sodium 139 mmol/L 136-145 White Blood Count 7.2 K/uL 3.1-10.7 eAG 128 mg/dL LDL Cholesterol Profile 07/31/2012 Cholesterol 230 mg/dL High 120-200 HDL Cholesterol 84 mg/dL High 29-83 LDL-Cholesterol 133 mg/dL 62-185 Triglycerides 63 mg/dL 16-231 Protime 07/31/2012 Inr 0.9 0.9-1.1 64 Protime 12.6 s 12.1-14.9 Laboratory test finding 07/30/2012 Appearance (Tube 1) Clear Appearance (Tube 4) Clear CSF Culture See Note 65 CSF Glucose 63 mg/dL 50-75 CSF Rbc (Tube 1) 381 /mm3 High -0 CSF Rbc (Tube 4) 1 /mm3 High -0 CSF Total Protein 38.6 mg/dL 15.0-45.0 CSF Wbc (Tube 1) 0 /mm3 0-5 CSF Wbc (Tube 4) 0 /mm3 0-5 Color (Tube 1) Colorless Color (Tube 4) Colorless Gram Stain See Note 66 Laboratory test finding 07/30/2012 Act Partial Thrombo Time 34.6 s High 23.9-34.3 67 Anion Gap 13 mEq/L 8-16 BUN 18 mg/dL 5-23 BUN/Creat 22.5 ratio Bas% 0.2 % 0.0-1.1 Baso # 0.02 K/uL 0.0-0.1 CK 83 U/L 26-190 Calcium 9.6 mg/dL 8.5-10.1 Carbon Dioxide 23 mEq/L 18-29 Chloride 102 mmol/L 98-107 Creatinine 0.8 mg/dL 0.5-1.4 Eo% 0.2 % 0.0-6.6 Eos # 0.02 K/uL 0.0-0.5 Glom Filtration Rate, Estimate >60 mL/min >60 Glucose 132 mg/dL High 76-115 Hematocrit 40.8 % 36.0-46.1 Hemoglobin 14.1 gm/dL 11.6-15.8 If >60 mL/min >60 68 Lymph # 1.15 K/uL 0.8-3.4 Lymph % 11.8 % Low 17.0-46.1 Mean Cell Volume 88.7 fl 80.9-99.0 Mean Corpuscular HGB 30.7 pg 25.9-32.7 Mean Corpuscular HGB Conc 34.6 g/dL High 30.8-34.3 Mean Platelet Volume 9.5 fL 8.9-12.4 Vilas # 0.59 K/uL 0.3-0.9 Vilas % 6.0 % 4.3-13.2 Neut# 8.00 K/uL High 1.0-7.0 Neut% 81.8 % High 40.4-72.8 Platelet Count 287 K/uL 155-360 Potassium 3.6 mmol/L 3.5-5.1 Red Blood Count 4.60 M/uL 3.90-5.40 Red Cell Distri Width %CV 13.5 % 11.7-14.4 Red Cell Distri Width SD 43.5 fl 3-47 Sodium 134 mmol/L Low 136-145 Troponin-I < 0.02 ng/mL 0.00-0.50 69 Urine Bilirubin - Dipstick Negative Negative Urine Blood Trace Negative Urine Clarity Clear Clear Urine Color Yellow Yellow Urine Glucose - Dipstick Negative mg/dL Negative Urine Ketone 15 mg/dL High Negative Urine Leuk Esterase Negative Negative Urine Nitrite - Dipstick Negative Negative Urine PH 6.5 6.5-7.5 Urine Protein - Dipstick Negative mg/dL Negative Urine Specific [place] 1.015 1.010-1.030 Urine Urobilinogen - Dipstick 0.2 E.U./dL 0.2-1.0 White Blood Count 9.8 K/uL 3.1-10.7 Protime 07/30/2012 Inr 0.9 0.9-1.1 70 Protime 12.6 s 12.1-14.9 Laboratory test finding 04/14/2010 Cytology Pap See Note 71 Lipid Panel 04/13/2010 Chol/HDL Ratio 3.3 72 Cholesterol 250 mg/dL High 50-199 HDL Cholesterol 75 mg/dL 45-86 LDL 131 mg/dL High 20-129 Triglycerides 221 mg/dL High 30-150 VLDL Cholesterol 44 mg/dL Laboratory test finding 04/13/2010 A/G Ratio 1.4 1.0-2.2 Albumin 4.1 g/dL 3.5-5.0 Alkaline Phosphatase 65 U/L 30-126 Alt 23 U/L 9-52 Ast 32 U/L 14-36 BUN 18 mg/dL 7-18 BUN/CR Ratio 17.3 Ratio 12-20 Bas% 0.5 % 0.0-1.1 Baso # 0.0 K/uL 0.0-0.1 Calcium 9.7 mg/dL 8.7-10.5 Carbon Dioxide 30 mmol/L 22-30 Chloride 98 mmol/L 98-107 Creatinine, Serum 1.0 mg/dL 0.7-1.2 Eo% 1.2 % 0.0-6.6 Eos # 0.1 K/uL 0.0-0.5 Globulin 2.8 g/dL 2.7-4.3 Glucose 87 mg/dL 65-105 Hematocrit 40.2 % 36.0-46.1 Hemoglobin 13.2 gm/dL 11.6-15.8 Lymph # 2.5 K/uL 0.8-3.4 Lymph % 31.9 % 17.0-46.1 Mean Cell Volume 90.3 fl 80.9-99.0 Mean Corpuscular HGB 29.7 pg 25.9-32.7 Mean Corpuscular HGB Conc 32.8 g/dL 30.8-34.3 Mean Platelet Volume 9.9 fL 8.9-12.4 Vilas # 0.7 K/uL 0.3-0.9 Vilas % 9.5 % 4.3-13.2 Neut# 4.5 K/uL 1.0-7.0 Neut% 56.9 % 40.4-72.8 Platelet Count 347 K/uL 155-360 Potassium 3.6 mmol/L 3.6-5.0 Red Blood Count 4.45 M/uL 3.90-5.40 Red Cell Distri Width %CV 13.5 % 11.7-14.4 Red Cell Distri Width SD 43 fl 3-47 Sodium 138 mmol/L 137-145 TSH 1.148 uIU/ml 0.50-6.00 Total Bilirubin 0.3 mg/dL 0.2-1.3 Total Protein 7.0 g/dL 6.3-8.2 Vitamin D,25-Hydroxy 43.6 ng/mL 32.0-100.0 73 White Blood Count 7.8 K/uL 3.1-10.7 Vitamin B12 And Folate 04/10/2009 Folic Acid 18.9 ng/mL High 6.0-15.4 Vitamin B12 849 pg/mL 208-964 Laboratory test finding 04/10/2009 Vitamin D,25-Hydroxy 28.3 ng/mL Low 32.0-100.0 74 Lipid Panel 04/10/2009 Chol/HDL Ratio 2.8 75 Cholesterol 249 mg/dL High 50-199 HDL Cholesterol 87 mg/dL High 45-86 LDL 133 mg/dL High 20-129 Triglycerides 147 mg/dL 30-150 VLDL Cholesterol 29 mg/dL Laboratory test finding 04/10/2009 A/G Ratio 1.6 1.0-2.2 Absolute Basophils 0.050 K/ul 0.0-0.3 Absolute Eosinophils 0.056 K/ul 0.0-0.5 Absolute Lymphocytes 1.91 K/ul 0.8-4.8 Absolute Monocytes 0.510 K/ul 0.1-1.0 Absolute Neutrophils 3.49 K/ul 2.05-7.63 Albumin 4.4 g/dL 3.5-5.0 Alkaline Phosphatase 70 U/L 30-126 Alt 17 U/L 9-52 Ast 30 U/L 14-36 BUN 15 mg/dL 7-18 BUN/CR Ratio 18.4 Ratio 12-20 Basophil 0.8 % 0-2 Calcium 10.0 mg/dL 8.7-10.5 Carbon Dioxide 26 mmol/L 22-30 Chloride 103 mmol/L 98-107 Creatinine, Serum 0.8 mg/dL 0.7-1.2 Eosinophil 0.9 % 0-4 Globulin 2.7 g/dL 2.7-4.3 Glucose 86 mg/dL 65-105 Hematocrit 43.5 % 37.0-51.0 Hemoglobin 13.8 GM/dl 12.0-16.0 Lymphocytes 31.7 % 20-44 MCH 29.3 pg 26.0-32.0 MCHC 31.6 g/dL 31.0-36.0 MCV 93 FL 80-97 Monocytes 8.5 % 2-10.0 Neutrophils 58.0 % 50-70 Platelet Count 339 K/ul 140-440 Potassium 4.3 mmol/L 3.6-5.0 RBC 4.69 M/ul 4.2-6.3 RDW 12.7 % 11.5-14.5 Sodium 138 mmol/L 137-145 TSH 1.376 uIU/ml 0.50-6.00 Total Bilirubin 0.5 mg/dL 0.2-1.3 Total Protein 7.2 g/dL 6.3-8.2 WBC 6.0 K/ul 4.1-10.9 Laboratory test finding 04/10/2009 Cytology Pap See Note ok 76 Laboratory test finding 04/10/2009 Cytology See Note 77 Laboratory test finding 11/14/2007 Abigail Species Negative For Can <See 78 Note> Gardnerella Vaginalis <see comment> 79 Trichomonas Vaginalis Negative For Tri <See Note> 80 Laboratory test finding 04/27/2007 Cytology Pap See Note 81 Laboratory test finding 03/30/2007 Tick Id <see comment> 82 Laboratory test finding 05/22/2006 Urine Bacteria Very Few None Seen Urine Bilirubin - Dipstick Moderate High Negative Urine Blood Large High Negative Urine Clarity Clear Clear Urine Color DK Yellow Yellow Urine Epithelial Cells Few None Seen Urine Glucose - Dipstick Negative Negative m Urine Ketone Negative Negative m Urine Leuk Esterase Trace High Negative Urine Nitrite - Dipstick Negative Negative Urine PH 5.0 Low 6.5-7.5 Urine Protein - Dipstick 100 NEGATIVEm High Urine RBC 5-7 Negative r Urine Specific [place] 1.020 1.010-1.030 Urine Urobilinogen - Dipstick 4.0 E.U./dL High 0.2-1.0 Urine WBC 5-7 Negative w 1 Updated reference range on new analyzer 2 Updated reference range on new analyzer 3 Concerning GFR Guidelines for Americans: Normal function or mild renal disease, if clinically at risk: >/=60 mL/min Moderately decreased: 30-59 Severely decreased: 15-29 Renal failure: <15 4 Concerning GFR Guidelines: Normal function or mild renal disease, if clinically at risk: >/=60 mL/min Moderately decreased: 30-59 Severely decreased: 15-29 Renal failure: <15 Glomerular Filtration Rate (GFR) is estimated based on the MDRD equation, which assumes a steady state for creatinine as recommended by the National Kidney Disease Education Program in conjunction with the National Institutes of Health and the National Kidney Foundation. Clinical conditions in which it may be necessary to measure GFR by using clearance methods include extremes of age and body size, severe malnutrition or obesity, diseases of skeletal muscle, paraplegia or quadriplegia, vegetarian diet, rapidly changing kidney function, and calculation of the dose of potentially toxic drugs that are excreted by the kidneys. 5 Updated reference range on new analyzer 6 S/CO Ratio >/=1.0 is REACTIVE. S/CO <5.0 is Low Reactive. S/CO >/= 5.0 is High Reactive. Effective May 05, 2017 all anti-HCV reactive samples are sent for quantitative PCR confirmation. 7 Clinical Guidelines for recommended serum 25(OH)Vitamin D Deficient at less than 20 ng/mL Insufficient at 20 to <30 ng/mL Sufficient at 30-100 ng/mL Toxicity at greater than 100 ng/mL 8 E87.1 9 Note: Persistent reduction for 3 months or more in an eGFR <60 mL/min/1.73 m2 defines CKD. Patients with eGFR values >/=60 mL/min/1.73 m2 may also have CKD if evidence of persistent proteinuria is present. The original MDRD equation for estimated GFR is not valid for patients less than 18 years of age. Additional information may be found at www.kdoqi.org. 10 NORMAL KIDNEY FUNCTION OR MILD DISEASE - GFR >OR=60 CHRONIC KIDNEY DISEASE - GFR 15 - 59 RENAL FAILURE - GFR <15 Est. GFR calculation based on the MDRD study equation, which assumes a steady state for creatinine. Est. GFR should not be used for medication dosing. [address] Odonnell [phone] 12 Updated reference range on new analyzer 13 Updated reference range on new analyzer 14 Concerning GFR Guidelines for Americans: Normal function or mild renal disease, if clinically at risk: >/=60 mL/min Moderately decreased: 30-59 Severely decreased: 15-29 Renal failure: <15 15 Concerning GFR Guidelines: Normal function or mild renal disease, if clinically at risk: >/=60 mL/min Moderately decreased: 30-59 Severely decreased: 15-29 Renal failure: <15 Glomerular Filtration Rate (GFR) is estimated based on the MDRD equation, which assumes a steady state for creatinine as recommended by the National Kidney Disease Education Program in conjunction with the National Institutes of Health and the National Kidney Foundation. Clinical conditions in which it may be necessary to measure GFR by using clearance methods include extremes of age and body size, severe malnutrition or obesity, diseases of skeletal muscle, paraplegia or quadriplegia, vegetarian diet, rapidly changing kidney function, and calculation of the dose of potentially toxic drugs that are excreted by the kidneys. 16 Updated reference range on new analyzer 17 Per NCEP ATP III Guidelines: Results lower than 40 mg/dL are suggestive of increased risk for coronary artery disease. Results > or=to 60 mg/dL are considered a negative risk factor. 18 Per NCEP ATP III Guidelines: Normal Population <130 Patients with medical conditions: CHD/DM Optimal: <100 Borderline high: 130-159 High: 160-189 Very high: >189 19 Unless otherwise specified, testing performed by Laboratory [facility] [address] [email or web address] [address] 20 Unless otherwise specified, testing performed by [facility] [address] [email or web address] [address] 21 Updated reference range on new analyzer 22 Updated reference range on new analyzer 23 Concerning GFR Guidelines: Normal function or mild renal disease, if clinically at risk: >/=60 mL/min Moderately decreased: 30-59 Severely decreased: 15-29 Renal failure: <15 Glomerular Filtration Rate (GFR) is estimated based on the MDRD equation, which assumes a steady state for creatinine as recommended by the National Kidney Disease Education Program in conjunction with the National Institutes of Health and the National Kidney Foundation. Clinical conditions in which it may be necessary to measure GFR by using clearance methods include extremes of age and body size, severe malnutrition or obesity, diseases of skeletal muscle, paraplegia or quadriplegia, vegetarian diet, rapidly changing kidney function, and calculation of the dose of potentially toxic drugs that are excreted by the kidneys. 24 Concerning GFR Guidelines for Americans: Normal function or mild renal disease, if clinically at risk: >/=60 mL/min Moderately decreased: 30-59 Severely decreased: 15-29 Renal failure: <15 25 Updated reference range on new analyzer 26 Microbiology results SOURCE Clean Catch Midstream FINAL RESULT No growth 27 TODAY 28 Updated reference range on new analyzer 29 Updated reference range on new analyzer 30 Concerning GFR Guidelines for Americans: Normal function or mild renal disease, if clinically at risk: >/=60 mL/min Moderately decreased: 30-59 Severely decreased: 15-29 Renal failure: <15 31 Concerning GFR Guidelines: Normal function or mild renal disease, if clinically at risk: >/=60 mL/min Moderately decreased: 30-59 Severely decreased: 15-29 Renal failure: <15 Glomerular Filtration Rate (GFR) is estimated based on the MDRD equation, which assumes a steady state for creatinine as recommended by the National Kidney Disease Education Program in conjunction with the National Institutes of Health and the National Kidney Foundation. Clinical conditions in which it may be necessary to measure GFR by using clearance methods include extremes of age and body size, severe malnutrition or obesity, diseases of skeletal muscle, paraplegia or quadriplegia, vegetarian diet, rapidly changing kidney function, and calculation of the dose of potentially toxic drugs that are excreted by the kidneys. 32 Updated reference range on new analyzer 33 Not Detected NOT DETECTED - A negative result does not rule out the presence of PCR inhibitors in the patient specimen or assay specific nucleic acid in concentrations below the level of detection by the assay. The CDC considers blood and urine samples to be suboptimal for the detection for Borrelia by PCR. Positive results do not necessarily represent active disease. INTERPRETIVE INFORMATION: Borrelia Species DNA Detection by PCR Test developed and characteristics determined by [facility]. See Compliance Statement B: [employer] Performed by [facility], [address] [place] [id number] [email or web address] Ross Monge MD, Lab. Director Unless otherwise specified, testing performed by [facility] [address] [place] [id number] 34 Per NCEP ATP III Guidelines: Results lower than 40 mg/dL are suggestive of increased risk for coronary artery disease. Results > or=to 60 mg/dL are considered a negative risk factor. 35 Per NCEP ATP III Guidelines: Normal Population <130 Patients with medical conditions: CHD/DM Optimal: <100 Borderline high: 130-159 High: 160-189 Very high: >189 36 Concerning GFR Guidelines for Americans: Normal function or mild renal disease, if clinically at risk: >/=60 mL/min Moderately decreased: 30-59 Severely decreased: 15-29 Renal failure: <15 37 Concerning GFR Guidelines: Normal function or mild renal disease, if clinically at risk: >/=60 mL/min Moderately decreased: 30-59 Severely decreased: 15-29 Renal failure: <15 Glomerular Filtration Rate (GFR) is estimated based on the MDRD equation, which assumes a steady state for creatinine as recommended by the National Kidney Disease Education Program in conjunction with the National Institutes of Health and the National Kidney Foundation. Clinical conditions in which it may be necessary to measure GFR by using clearance methods include extremes of age and body size, severe malnutrition or obesity, diseases of skeletal muscle, paraplegia or quadriplegia, vegetarian diet, rapidly changing kidney function, and calculation of the dose of potentially toxic drugs that are excreted by the kidneys. 38 Concerning GFR Guidelines for Americans: Normal function or mild renal disease, if clinically at risk: >/=60 mL/min Moderately decreased: 30-59 Severely decreased: 15-29 Renal failure: <15 39 Concerning GFR Guidelines: Normal function or mild renal disease, if clinically at risk: >/=60 mL/min Moderately decreased: 30-59 Severely decreased: 15-29 Renal failure: <15 Glomerular Filtration Rate (GFR) is estimated based on the MDRD equation, which assumes a steady state for creatinine as recommended by the National Kidney Disease Education Program in conjunction with the National Institutes of Health and the National Kidney Foundation. Clinical conditions in which it may be necessary to measure GFR by using clearance methods include extremes of age and body size, severe malnutrition or obesity, diseases of skeletal muscle, paraplegia or quadriplegia, vegetarian diet, rapidly changing kidney function, and calculation of the dose of potentially toxic drugs that are excreted by the kidneys. 40 Per NCEP ATP III Guidelines: Results lower than 40 mg/dL are suggestive of increased risk for coronary artery disease. Results > or=to 60 mg/dL are considered a negative risk factor. 41 Per NCEP ATP III Guidelines: Normal Population <130 Patients with medical conditions: CHD/DM Optimal: <100 Borderline high: 130-159 High: 160-189 Very high: >189 42 < 0.90 NEGATIVE > 0.89 AND < 1.09 INDETERMINATE > 1.09 POSITIVE Unless otherwise specified, testing performed by [facility] [address] [place] [id number] 43 OPERATION/PROCEDURE Colonoscopy DIAGNOSIS: "TRANSVERSE COLON POLYP": LYMPHOID HYPERPLASIA (LYMPHOID POLYP). NO HYPERPLASTIC OR ADENOMATOUS CHANGE IDENTIFIED. HERBERT/loki 1026 GROSS The specimen is submitted in a container labeled, "TRANSVERSE POLYP". The specimen consists of a single piece of yellow-gipson tissue 0.2 x 0.2 x 0.2 cm. Submitted entirely in one block. HERBERT/clf PRE OPERATIVE DIAGNOSIS Screening colon REVIEW CODE CODE: I Signed Electronically signed JOHNNY HERNANDEZ MD [id number] 44 Vitamin D deficiency has been defined by the [place] of Medicine and an Endocrine Society practice guideline as a level of serum 25-OH vitamin D less than 20 ng/mL (1,2). The Endocrine Society went on to further define vitamin D insufficiency as a level between 21 and 29 ng/mL (2). 1. IOM ([place] of Medicine). 2010. Dietary reference intakes for calcium and D. [place]: The National Academies Press. 2. Elaina MF, Sally NC, Trever CONELY, et al. Evaluation, treatment, and prevention of vitamin D deficiency: an Endocrine Society clinical practice guideline. JCEM. 2011 Mar; 96(7):1911-30. Performed at: RN - [facility] [address] [id number] [employer]user: Alexa Trejo MD, Phone: [phone] 45 For -[place] patients multiply result by 1.180 46 Negative <0.91 Equivocal 0.91 - 1.09 Positive >1.09 Note: The CDC currently advises that Western blot testing be performed following all equivocal or positive EIA results. Final diagnosis should include appropriate clinical findings and a positive EIA which is also positive by Western blot. 47 Negative <0.91 Equivocal 0.91 - 1.09 Positive >1.09 Note: IgM levels may peak at 3-6 weeks post infection, then gradually decline. FDA currently advises that Western Blot testing be performed following all equivocal or positive EIA results. Final diagnosis should include appropriate clinical findings and a positive EIA which is also positive by Western Blot. 48 DUPLICATE ORDER 49 Positive: 5 of the following Borrelia-specific bands: 18,23,28,30,39,41,45, 58, 66, and 93. Negative: No bands or banding patterns which do not meet positive criteria. 50 Note: An equivocal or positive EIA result followed by a negative Western Blot result is considered NEGATIVE. An equivocal or positive EIA result followed by a positive Western Blot is considered POSITIVE by the CDC. Positive: 2 of the following bands: 23,39 or 41 Negative: No bands or banding patterns which do not meet positive criteria. Criteria for positivity are those recommended by CDC/ASTPHLD. p23=Osp C, [id number] Note: Sera from individuals with the following may cross react in the [place]yme Western Blot assays: other spirochetal diseases (periodontal disease, leptospirosis, relapsing fever, yaws, and pinta); connective autoimmune (Rheumatoid Arthritis and Systemic Lupus Erythematosus and also individuals with Antinuclear Antibody); other infections ([place] Spotted Fever; Polo-Bond Virus, and Cytomegalovirus). Performed at: - [facility] [id number] [employer]user: Alexa Trejo MD, Phone: [phone] Cytology Laboratory [address] [place] [address], [place] [address] [place] [address] CYTOLOGY REPORT Name: KATHRIN ALMODOVAR : 1950 (Age: 63) Sex: F Location: [facility] Med. Rec. # [id number] Date Collected: 08/27/2013 Billing #: [id number] Date Received: 08/27/2013 Alternate #: [id number] Requisition # [id number] Physician(s): SEAN ROMERO DO Source of Specimen: ENDOCERVICAL/THIN PREP Clinical Information: Date of Last Menstrual Period: None Provided Menstrual History: Post menopausal Specimen Adequacy: SATISFACTORY FOR EVALUATION. ADEQUATE ENDOCERVICAL/TRANSFORMATION ZONE. General Categorization: NEGATIVE FOR INTRAEPITHELIAL LESION OR MALIGNANCY. tahmina Electronic Signature LAUREEN Rodriguez ([facility]) Reported: 2012 [employer] ICD-9 Code(s) V72.31 52 For -[place] patients multiply result by 1.180 53 COLONY COUNT ! 10,000 - 20,000 CFU/ml Organism 1 ! MIXED URETHRAL ARTURO 54 Cytology Laboratory [address] [facility], [address] [place] [address] CYTOLOGY REPORT Name: KATHRIN ALMODOAVR : 1950 (Age: 63) Sex:F Location: [facility] Med. Rec. # [id number] Date Collected: 08/27/2013 Billing #: [id number] Date Received : 08/27/2013 Alternate #: [id number] Requisition #: [id number] Physician(s): SEAN ROMERO DO Source of Specimen: URINE Clinical Information 791.7 Gross Description Received 5 cc. of clear yellow fluid. Final Diagnosis NO MALIGNANT CELLS IDENTIFIED. ACUTE INFLAMMATION AND RED BLOOD CELLS. kw Electronic Signature Wilton Layne MD Reported: 08/28/2013 Also seen by: LAUREEN Davison ([facility]) [facility] [employer] [facility] ICD-9 Code(s) 55 Negative <0.91 Equivocal 0.91 - 1.09 Positive >1.09 Note: The CDC currently advises that Western blot testing be performed following all equivocal or positive EIA results. Final diagnosis should include appropriate clinical findings and a positive EIA which is also positive by Western blot. 56 Negative <0.91 Equivocal 0.91 - 1.09 Positive >1.09 Note: IgM levels may peak at 3-6 weeks post infection, then gradually decline. FDA currently advises that Western Blot testing be performed following all equivocal or positive EIA results. Final diagnosis should include appropriate clinical findings and a positive EIA which is also positive by Western Blot. 57 DUPLICATE ORDER 58 Positive: 5 of the following Borrelia-specific bands: 18,23,28,30,39,41,45, 58, 66, and 93. Negative: No bands or banding patterns which do not meet positive criteria. 59 Note: An equivocal or positive EIA result followed by a negative Western Blot result is considered NEGATIVE. An equivocal or positive EIA result followed by a positive Western Blot is considered POSITIVE by the CDC. Positive: 2 of the following bands: 23,39 or 41 Negative: No bands or banding patterns which do not meet positive criteria. Criteria for positivity are those recommended by CDC/ASTPHLD. p23=Osp C, [id number] Note: Sera from individuals with the following may cross react in the Lyme Western Blot assays: other spirochetal diseases (periodontal disease, leptospirosis, relapsing fever, yaws, and pinta); connective autoimmune (Rheumatoid Arthritis and Systemic Lupus Erythematosus and also individuals with Antinuclear Antibody); other infections ([place] Spotted Fever; Polo-Bond Virus, and Cytomegalovirus). Performed at: [address] [id number] [employer]user: Alexa Trejo MD, Phone: [phone] 60 Negative <1:80 Borderline 1:80 Positive >1:80 61 A positive MINERVA result may occur in healthy individuals or be associated with a variety of diseases. See interpre- tation below: Pattern Antigen Detected Suggested Disease Association Homogeneous DNA(ds,ss,), High titers - SLE ( Smooth) Histone Speckled Sm, [employer]ING [employer], SCL-70, SLE,MCTD,Scleroderma,Sjogrens SS-A/SS-B ---- Nucleolar SCL-70, PM-1/SCL High titers Scleroderma Poly- myositis/Scleroderma Overlap Centromere Centromere PSS w/Crest syndrome variable 62 A1c value between 5.7% and 6.4% is considered at increased risk for diabetes. A1c value greater than 6.5 % is considered essentially diagnostic for Type II diabetes. Current guidelines recommend a treatment goal of <7% for diabetic patients. This method will measure glycosylated hemoglobin variants, HbS, HbG , HbH, HbWayne, HbC, HbE, etc. Other hemoglobin- opathies may give incorrect results with this test. 63 Note: Persistent reduction for 3 months or more in an eGFR <60 mL/min/ 1.73 m2 defines CKD. Patients with eGFR values >/=60 mL/min/1.73 m2 may also have CKD if evidence of persistent proteinuria is present. The original MDRD equation for estimated GFR is not valid for patients less than 18 years of age. Additional information may be found at www.kdoqi.org. 64 THERAPEUTIC INR RANGE: 2.0 - 3.0 DVT, Pulmonary embolus, prophylaxis against venous thrombosis or systemic embolization in high risk patients. 2.5 - 3.5 Mechanical heart valves 65 NO GROWTH: FINAL REPORT 66 GRAM STAIN ! NO ORGANISMS SEEN ! BY CYTOSPIN SMEAR 67 Is patient on anticoagulants? None QUERY: Anticoagulant Therapy? QUERY: Date of Last Dose: QUERY: Time of Last Dose: 68 Note: Persistent reduction for 3 months or more in an eGFR <60 mL/min/ 1.73 m2 defines CKD. Patients with eGFR values >/=60 mL/min/1.73 m2 may also have CKD if evidence of persistent proteinuria is present. The original MDRD equation for estimated GFR is not valid for patients less than 18 years of age. Additional information may be found at www.kdoqi.org. 69 0 - 0.5 ng/mL: No evidence of myocardial injury 0.6 - 1.4 ng/mL: Mild elevation, suggesting possible myocardial injury > 1.4 ng/mL: Consistent with myocardial injury 70 THERAPEUTIC INR RANGE: 2.0 - 3.0 DVT, Pulmonary embolus, prophylaxis against venous thrombosis or systemic embolization in high risk patients. 2.5 - 3.5 Mechanical heart valves 71 [facility] [address] [place] [address], [address] [place] [address] CYTOLOGY REPORT Name: KATHRIN ALMODOVAR : 1950 (Age: 59) Sex: F Location: [facility] Soc. Sec. #: [id number] Date Collected: 04/14/2010 Billing #: [id number] Date Received: 04/14/2010 Requisition # [id number] Alternate #: [id number] Physician(s): SEAN ROMERO MD Source of Specimen: ENDOCERVICAL/THIN PREP Clinical Information: Date of Last Menstrual Period: None Provided Menstrual History: Post menopausal Specimen Adequacy: SATISFACTORY FOR EVALUATION. ADEQUATE ENDOCERVICAL/TRANSFORMATION ZONE. General Categorization: NEGATIVE FOR INTRAEPITHELIAL LESION OR MALIGNANCY. dcl Electronic Signature LAUREEN Dawson (ASCP) Reported: 04/19/[address] [facility] ICD-9 Code(s) V72.31 72 Normal Range: Male: <4.98 Female: <4.45 73 Recent studies consider the lower limit of 32.0 ng/mL to be a threshold for optimal health. Pastor BW. J Nutr. 2005 Oct;135(2):317-22. Performed at: RN - [facility] [address] [id number] Circular Saw Edge Fuser: Chucky Lund MD, Phone: [phone] 74 Recent studies consider the lower limit of 32.0 ng/mL to be a threshold for optimal health. Pastor BW. J Nutr. 2005 Oct;135(2):317-22. 75 Normal Range: Male: <4.98 Female: <4.45 76 Cytology [id number] [facility], [address] [place] [address] CYTOLOGY REPORT Name: KATHRIN ALMODOVAR : 1950 (Age: 58) Sex: F Location: [facility] Soc. Sec. #: [id number] Date Collected: 04/10/2009 Billing #: [id number] Date Received: 04/10/2009 Requisition # [id number] Alternate #: [id number] Physician(s) : SEAN ROMERO MD Source of Specimen: ENDOCERVICAL/ECTOCERVICAL THIN PREP Clinical Information: Date of Last Menstrual Period: Menopause Specimen Adequacy: SATISFACTORY FOR EVALUATION. ADEQUATE ENDOCERVICAL/TRANSFORMATION ZONE. General Categorization: NEGATIVE FOR INTRAEPITHELIAL LESION OR MALIGNANCY. tahmina Electronic Signature LAUREEN Rodriguez (ASCP) Reported: 04/15/[address] [facility] ICD-9 Code(s) V72.31 77 Cytology [id number] [facility], [address] [place] [address] CYTOLOGY REPORT Name: KATHRIN ALMODOVAR : 1950 (Age: 58) Sex:F Location: [facility] Soc. Sec. #: [id number] Date Collected: 04/10/2009 Billing #: [id number] Date Received: 04/10/2009 Requisition #: [id number] Alternate #: [id number] Physician(s): SEAN ROMERO MD Source of Specimen: URINE Clinical Information 599.70 Gross Description Received 20 cc. of cloudy yellow fluid. Final Diagnosis NO MALIGNANT CELLS IDENTIFIED. A FEW CRYSTALS AND RED BLOOD CELLS PRESENT. saf Electronic Signature Chucky Jean MD Reported: 04/13/2009 Also seen by: LAUREEN Torres (ASCP) Cytology Outreach [facility] ICD-9 Code(s) 599.9 78 NEGATIVE FOR ABIGAIL SPECIES 79 NEGATIVE FOR GARDNERELLA VAGINALIS Testing Performed by: Laboratory [place] [address] 80 NEGATIVE FOR TRICHOMONAS VAGINALIS 81 Cytology [id number] [facility], [address] [place] [address] CYTOLOGY REPORT Name: KATHRIN ALMODOVAR : 1950 (Age: 56) Sex: F Location: [facility] Soc. Sec. #: [id number] Date Collected: 04/27/2007 Billing #: [id number] Date Received: 04/30/2007 Alternate #: [id number] Physician(s): SEAN ROMERO MD Source of Specimen: ENDOCERVICAL/THIN PREP Clinical Information: Date of Last Menstrual Period: None Provided Menstrual History:Post menopausal: 12 years ago Specimen Adequacy: SATISFACTORY FOR EVALUATION. ADEQUATE ENDOCERVICAL/TRANSFORMATION ZONE. General Categorization: NEGATIVE FOR INTRAEPITHELIAL LESION OR MALIGNANCY. lar Electronic Signature LAUREEN Ray (ASCP) Reported: 05/03/[address] [facility] ICD-9 Code(s) V72.31 82 SENT TO [facility] Species submitted: ASHKAN. VARIABILIS Developmental Stage: FEMALE Hypostome (Mouthparts): ATTACHED Degree of Engorgement: 0:1 (1=slight blood meal; 5=fully engorged) Condition Received: GOOD Notes: NOT A KNOWN VECTOR OF LYME DISEASE. Dermacentor variabilis, the "[place] Dog tick" is one of the most common tick species in [facility]. This species most frequently feeds on dogs, but it often feeds on humans as well. It is not a vector of Lyme disease. However, it is known to transmit [place] spotted fever and has been implicated as a possible vector of ehrlichiosis. Both of these diseases are relatively uncommon in [facility]. This tick can cause a type of temporary paralysis that usually disappears when the biting tick is removed. Misbah MOuntain spotted fever symptoms include sudden onset of fever (lasting up tp two weeks), headaches, fatigue, deep muscle pain, chills, and a characteristic rash on the palms of the hands and/ or soles of the feet. Ehrlichiosis symptoms are similar, but without the characteristic rash. If any of these symptoms develop following a tick bite, a physician should be contacted immediatley. Symptoms may last for weeks and usually begin within a month of exposure. Procedures Date CPT Code Description Status Comment 08/25/2017 91540 Measure Blood Oxygen Level Completed Single Determination 08/25/2017 97099 Electrocardiogram Complete Completed 03/22/2017 Mammogram Completed Document: 09/17/54 - Mammogram Result Document: 09/21/15 - Mammogram/Bilater Document: 03/22/17 - Digital Mammography Screening 09/21/2015 17116 Bone Density Study (Dexa) Axial Completed Skeleton (Hips,Pelvis,Spine) 09/21/2015 Mammogram Completed 09/21/2015 Bone Mineral Density Test Completed 02/05/2015 Colonoscopy Completed Document: 02/05/15 - Colonoscopy Lab Order: 02/05/15 - Lab NEXT 201909/25/2014 95952 Ultrasound Breast Unilateral Completed Real Time W/ [employer] [place] 09/25/2014 87851 Ultrasound Breast Unilateral Completed Real Time W[facility] 09/25/2014 91288 Echography Breast(S) B-Scan Completed 08/27/2013 62583 Mammography Unilateral Completed 08/27/2013 10719 Bone Density Study, Single Completed Photon Absorptiometry 08/19/2013 48858 Measure Blood Oxygen Level Completed Single Determination 04/13/2010 43530 Mammography Unilateral Completed 04/13/2009 91493 Bone Density Study, Single Completed Photon Absorptiometry 04/10/2009 62571 Mammography Unilateral Completed 04/27/2007 36223 Mammography Unilateral Completed 08/18/2005 44063 Bone Density Study, Single Completed Photon Absorptiometry 08/18/2005 81135 Mammography Unilateral Completed 09/16/2004 75179 Colonoscopy Flexible Diagnostic Completed 08/04/2003 08741 Measure Blood Oxygen Level Completed Single Determination 09/17/154 Mammogram Completed Encounters Type Date Location Provider CPT E/M Dx Office Visit 09/15/2017 2:30p [place] [address] G91.9 E87.1 R53.83 Z11.59 Office Visit 09/01/2017 11:00a [place] [address] E87.1 G91.9 Office Visit 08/25/2017 10:00a [place] [address] Z01.818 G91.9 D32.9 Office Visit 08/10/2017 3:00p [facility] [place] [address] R27.0 R47.81 R35.0 Office Visit 07/17/2017 11:00a [facility] [place] [address] S81.851A Office Visit 06/27/2017 10:30a [facility] [place] [address] R32 Office Visit 03/21/2017 3:30p [facility] [place] [address] R27.0 R53.81 Z12.31 Office Visit 10/27/2016 10:00a [facility] [place] [address] J06.9 Office Visit 08/30/2016 3:30p [facility] [place] Rom[place] G[address]39 Z00.00 H81.09 E78.2 N95.1 Z68.27 M81.0 Office Visit 03/10/2016 10:15a [facility] [place] [address] S10.86xA Office Visit 02/09/2016 2:45p [facility] [place] [address] S20.361D Office Visit 08/31/2015 10:30a [facility] Sean Romero G0439 Z00.00 K21.9 H81.09 Z68.28 R41.3 E78.2 Z12.31 Office Visit 07/24/2015 9:45a [facility] [place] [address] K21.9 Office Visit 02/24/2015 3:15p [facility] Traci, [place] [address] 780.2 Office Visit 01/27/2015 10:15a [facility] Traci, [place] [address] 386.00 E812.0 386.00 E812.0 Plan of Care Future Appointment(s):01/08/2018 11:30 am - Joseline Lorenzo PA at [facility]2017 - Joseline Lorenzo PAZ00.00 Encntr for general adult medical exam w/o abnormal findingsComments:Medicare physicalDepression screen:upon review of signs and symptoms with exam assessment pt appearsstableFunctional capacity and daily living skills: upon review of signs and symptoms through direct questioning, pt appears stable and adequately safe to continue in her current living situation.Screening for breast cancer: done March 2017Screening for office machine technician cancers (cervical, vaginal, vulvar): no longerneededScreening for colon cancer: due 2019Consider shingles vaccine, recommended for those > 60 years of age with prior varicella history, to decrease shingles risk. Pt notes she has had doneEncouraged healthy diet with meats simply prepared, fresh fruits and veg when able also simply prepared, whole grains, 3 dairies per day non fat. Recommend consumption of omega 3 healthy fats daily. Encouraged daily exercise 30 - 60 min daily/ or 150,min per week. Encouraged at least 2 qrts water per day with more for sweaty exercise. [employer] 7-8 hours of sleep at night. Recommend under 1 alcoholic drink per day and avoid smoking.Follow up:3 months
--- NOTE | 2017-11-02 15:50 | UC ---
Skin Complaint HPI - HPI Summary HPI Summary: 67 yo female with tick right hanson suspects it has been attached about 24 hours no hx LD - History of Current Complaint Chief Complaint: UCSkin Time Seen by Provider: 11/02/17 15:36 Stated Complaint: TICK - RT LEG Hx Obtained From: Patient Onset/Duration: Lasting Hours Skin Exposure Onset/Duration: Hours Ago Timing: Constant Current Severity: None Pain Intensity: 0 Pain Scale Used: 0-10 Numeric Location: Other - right hanson Aggravating Factor(s): Nothing Alleviating Factor(s): Nothing Associated Signs & Symptoms: Positive: Negative - Allergy/Home Medications Allergies/Adverse Reactions: Allergies Allergy/AdvReac Type Severity Reaction Status Date / Time MS Penicillins [Penicillins] Allergy Intermediate rash, Verified 11/02/17 15:16 weakness Review of Systems Constitutional: Negative Skin: Negative Eyes: Negative ENT: Negative Respiratory: Negative Cardiovascular: Negative Gastrointestinal: Negative Genitourinary: Negative Motor: Negative Neurovascular: Negative Musculoskeletal: Negative Neurological: Negative Psychological: Negative Is Patient Immunocompromised?: No All Other Systems Reviewed And Are Negative: Yes PMH/Surg Hx/FS Hx/Imm Hx Previously Healthy: Yes - Surgical History Surgical History: Yes Surgery Procedure, Year, and Place: OVARIAN CYST IN THE 70S. Neuro surgery, shunt placed. beingn brain tumor - Family History Known Family History: Positive: Hypertension Negative: Blood Disorder - Social History Alcohol Use: Rare Substance Use Type: None Smoking Status (MU): Never Smoked Tobacco - Immunization History Most Recent Influenza Vaccination: NONE Most Recent Tetanus Shot: UNKNOWN Most Recent Pneumonia Vaccination: NONE Physical Exam Triage Information Reviewed: Yes Appearance: Well-Appearing, No Pain Distress, Well-Nourished Vital Signs: Initial Vital Signs Temp 98.2 F 11/02/17 15:11 Pulse 76 11/02/17 15:11 Resp 16 11/02/17 15:11 BP 128/69 11/02/17 15:11 Pulse Ox 97 11/02/17 15:11 Vital Signs Reviewed: Yes Eyes: Positive: Conjunctiva Clear ENT: Positive: Hearing grossly normal, TMs normal. Negative: Nasal congestion, Nasal drainage, Trismus, Muffled voice, Hoarse voice Neck: Positive: Supple Respiratory: Positive: Lungs clear, Normal breath sounds, No respiratory distress, No accessory muscle use Cardiovascular: Positive: RRR, No Murmur Abdomen Description: Positive: Nontender, No Organomegaly Musculoskeletal: Positive: ROM Intact, No Edema Neurological: Positive: Alert Skin Exam: Other - tick attached right hanson Course/Dx - Course Course Of Treatment: tick removed in toto with tick twister (by me) - Diagnoses Provider Diagnoses: TICK BITE. LYME DISEASE PROPHYLAXIS Discharge - Discharge Plan Condition: Stable Disposition: HOME Prescriptions: DOXYcycline CAP(*) [DOXYcycline 100MG CAP(*)] 200 mg PO DAILY #2 cap Patient Education Materials: Tick Bite (ED) Referrals: Joseline Lorenzo PA [Primary Care Provider] -
== END 2017-11-02 15:57 | disposition home or self-care (01) ==
LOC: UCCORT 14:47
DX: S80.861A Insect bite (nonvenomous), right lower leg, initial encounter (principal); W57.XXXA Bitten or stung by nonvenomous insect and other nonvenomous arthropods, initial encounter; Y92.9 Unspecified place or not applicable
CPT/HCPCS: 99212; G0463